=== PATIENT | female | born 1980 | race African-American/Black ===

== ENCOUNTER 2023-02-18 09:15 | Inpatient (IN) | payer OTHER ==
[2023-02-18] MEDS ORDERED: DEXTROSE 5%-LACTATED RINGERS 1,000 ML IV SCH (10:45)
[2023-02-18] MEDS ORDERED: SODIUM CHLORIDE 500 ML IV STA (10:50)
[2023-02-18 11:03] VITALS: BMI 29.5
[2023-02-18 12:13] LABS: BASO % 0.3 % (0-2.0); EOS % 0.2 % (0-4.5); HEMOGLOBIN 11.7 GM/dL (10.7-15.3); LYMPH % 16.8 % (8-40); MCH 33.1 pg (25.7-33.7); MCHC 34.3 g/dl (32.0-36.0); MEAN CELL VOLUME 96.5 fl (80-96); MEAN PLT VOLUME 9.8 fl (7.5-11.1); MONO % 11.3 % (3.8-10.2); NEUT % 71.4 % (42.8-82.8); PLATELET COUNT 151 10^3/uL (134-434); RBC 3.52 M/mm3 (3.60-5.2); RDW 13.8 % (11.6-15.6); WHITE BLOOD COUNT 6.4 K/mm3 (4.0-10.0)
[2023-02-18 12:19] LABS: INR 1.03 (0.83-1.09); PROTHROMBIN TIME (PATIENT) 11.9 SEC (9.7-13.0)
[2023-02-18 12:21] LABS: ACTIVATED PTT 28.4 SECONDS (25.2-36.5)
[2023-02-18 12:29] LABS: CALCIUM 9.2 mg/dL (8.5-10.1)
[2023-02-18 12:30] LABS: BLOOD UREA NITROGEN 15.2 mg/dL (7-18)
[2023-02-18 12:34] LABS: CREATININE 0.7 mg/dL (0.55-1.3)
[2023-02-18] MEDS ORDERED: OXYTOCIN 10 UNITS/ML VIAL ONE (17:24)
[2023-02-18] MEDS ORDERED: morphine SULFATE (PF) 1 MG/2 ML SYRINGE ONE (17:24)
[2023-02-18] MEDS ORDERED: ONDANSETRON 4 MG/2 ML VIAL ONE (17:24)
[2023-02-18] MEDS ORDERED: FENTANYL CITRATE/PF 50 MCG/ML VIAL ONE (17:24)
[2023-02-18] MEDS ORDERED: KETOROLAC TROMETHAMINE 30 MG/1 ML VIAL ONE (17:24)
[2023-02-18] MEDS ORDERED: EPINEPHrine/PF 1 MG/1 ML (1:1,000) AMPULE ONE (17:25)
[2023-02-18] MEDS ORDERED: ceFAZolin SODIUM 1 GM VIAL ONE (18:19)
[2023-02-18 19:28] LABS: CORD BASE EXCESS -3.1 mmol/L (0-2); CORD HCO3 23.2 mmHg (20-29); CORD PCO2 46.2 mmHg (30-78); CORD pH 7.318 (7.14-7.44)
[2023-02-18 19:31] LABS: CORD HCO3 21.5 mmHg (20-29); CORD PCO2 44.7 mmHg (30-78)
[2023-02-18] MEDS ORDERED: ONDANSETRON 4 MG/2 ML VIAL IVPUSH PRN (20:15)
[2023-02-18] MEDS ORDERED: IBUPROFEN 600 MG TABLET (FP) PO ONE (20:54)
[2023-02-18] MEDS: IBUPROFEN 600 MG TABLET (FP) PO PRN (20:56)
[2023-02-18] MEDS ORDERED: morphine SULFATE 4 MG/ML VIAL ONE (21:12)
[2023-02-18] MEDS: morphine SULFATE 4 MG/ML VIAL IVPB PRN (21:20)
[2023-02-18] MEDS: OXYTOCIN 20 UNITS in 0.9% NS 20 UNIT/1,000 ML INFUS.BAG IV SCH (23:39)
[2023-02-19] MEDS: morphine SULFATE 4 MG/ML VIAL IVPB PRN ×2 (01:36→06:22)
[2023-02-19] MEDS: OXYTOCIN 20 UNITS in 0.9% NS 20 UNIT/1,000 ML INFUS.BAG IV SCH (06:59)
[2023-02-19 07:37] LABS: BASO % 0.3 % (0-2.0); EOS % 0.2 % (0-4.5); HEMATOCRIT 30.3 % (32.4-45.2); HEMOGLOBIN 10.5 GM/dL (10.7-15.3); LYMPH % 12.7 % (8-40); MCH 33.2 pg (25.7-33.7); MCHC 34.6 g/dl (32.0-36.0); MEAN CELL VOLUME 95.9 fl (80-96); MEAN PLT VOLUME 9.5 fl (7.5-11.1); MONO % 8.9 % (3.8-10.2); NEUT % 77.9 % (42.8-82.8); PLATELET COUNT 144 10^3/uL (134-434); RBC 3.16 M/mm3 (3.60-5.2); RDW 13.8 % (11.6-15.6); WHITE BLOOD COUNT 10.9 K/mm3 (4.0-10.0)
[2023-02-19] MEDS: FERROUS SO4 325 MG TABLET (FP) PO SCH ×2 (09:08→17:11)
[2023-02-19] MEDS: SIMETHICONE 80 MG TAB.CHEW (FP) PO PRN ×3 (09:08→21:20)
[2023-02-19] MEDS: PRENATAL VITAMINS W/ FOLIC ACID TABLET (FP) PO SCH (09:08)
[2023-02-19] MEDS: IBUPROFEN 600 MG TABLET (FP) PO PRN ×3 (09:09→23:00)
[2023-02-19] MEDS: ACETAMINOPHEN 325 MG TABLET (FP) PO PRN ×2 (13:36→23:59)
[2023-02-19] MEDS: oxyCODONE HCL 5 MG TABLET PO PRN ×2 (17:12→21:18)
[2023-02-20] MEDS: oxyCODONE HCL 5 MG TABLET PO PRN (01:06)
[2023-02-20] MEDS: SIMETHICONE 80 MG TAB.CHEW (FP) PO PRN ×5 (01:06→22:40)
[2023-02-20] MEDS: IBUPROFEN 600 MG TABLET (FP) PO PRN ×5 (02:58→22:38)
[2023-02-20] MEDS: ACETAMINOPHEN 325 MG TABLET (FP) PO PRN ×2 (05:55→12:02)
[2023-02-20] MEDS: FERROUS SO4 325 MG TABLET (FP) PO SCH ×2 (09:00→18:08)
[2023-02-20] MEDS: PRENATAL VITAMINS W/ FOLIC ACID TABLET (FP) PO SCH (09:10)
[2023-02-20] MEDS: OXYTOCIN 20 UNITS in 0.9% NS 20 UNIT/1,000 ML INFUS.BAG IV SCH (19:28)
[2023-02-20 22:41] VITALS: TEMP 98.7
[2023-02-21] MEDS: ACETAMINOPHEN 325 MG TABLET (FP) PO PRN (00:31)
[2023-02-21 07:27] LABS: BASO % 0.3 % (0-2.0); EOS % 1.1 % (0-4.5); HEMATOCRIT 26.3 % (32.4-45.2); HEMOGLOBIN 9.3 GM/dL (10.7-15.3); LYMPH % 16.1 % (8-40); MCH 34.1 pg (25.7-33.7); MCHC 35.3 g/dl (32.0-36.0); MEAN CELL VOLUME 96.6 fl (80-96); MEAN PLT VOLUME 9.9 fl (7.5-11.1); MONO % 11.4 % (3.8-10.2); NEUT % 71.1 % (42.8-82.8); PLATELET COUNT 166 10^3/uL (134-434); RBC 2.72 M/mm3 (3.60-5.2); RDW 13.7 % (11.6-15.6); WHITE BLOOD COUNT 9.7 K/mm3 (4.0-10.0)
[2023-02-21] MEDS: FERROUS SO4 325 MG TABLET (FP) PO SCH (07:58)
[2023-02-21] MEDS: oxyCODONE HCL 5 MG TABLET PO PRN (08:01)
[2023-02-21 08:42] VITALS: RESP 16
[2023-02-21 08:44] VITALS: BP 114/76; PULSE 83
[2023-02-21] MEDS: PRENATAL VITAMINS W/ FOLIC ACID TABLET (FP) PO SCH (09:23)
== END 2023-02-21 13:20 | disposition home or self-care (01) | DRG 540 ==
LOC: JDEL 09:15 → JLDR 10:15 → J3W 21:55
PROVIDERS: ADMIT Obstetrics & Gynecology Maternal & Fetal Medicine; ATTEND Obstetrics & Gynecology Maternal & Fetal Medicine
PROC: 10D00Z1 Extraction of Products of Conception, Low, Open Approach (ICD-10-PCS; principal; 2023-02-18)
DX: O34.211 Maternal care for low transverse scar from previous cesarean delivery (principal); O10.92 Unspecified pre-existing hypertension complicating childbirth; O26.23 Pregnancy care for patient with recurrent pregnancy loss, third trimester; O99.12 Other diseases of the blood and blood-forming organs and certain disorders involving the immune mechanism complicating childbirth; D68.59 Other primary thrombophilia; O75.82 Onset (spontaneous) of labor after 37 completed weeks of gestation but before 39 completed weeks gestation, with delivery by (planned) cesarean section; O34.13 Maternal care for benign tumor of corpus uteri, third trimester; D25.9 Leiomyoma of uterus, unspecified; O90.81 Anemia of the puerperium; Z3A.38 38 weeks gestation of pregnancy; Z37.0 Single live birth; Z79.01 Long term (current) use of anticoagulants
CPT/HCPCS: 36415; 36600; 59025; 80048; 82803; 85025; 85610; 85730; 86780; 86850; 86900; 86901; 88307-TC; C9803-CS; U0003; U0005